=== PATIENT | male | born 1965 ===

== ENCOUNTER 2024-04-13 10:15 | Inpatient (IN) | payer OTHER ==
[~2024-04-13] VITALS: Ht 160 cm; Wt 80.3 kg
[2024-04-13] MEDS ORDERED: TAMS0.4C PO (13:11)
[2024-04-13] MEDS ORDERED: PEPCID40 MG PO (13:12)
[2024-04-13] MEDS ORDERED: HORIZANT300 MG PO (13:12)
[2024-04-13] MEDS ORDERED: PERCOCET 5-3251 EACH PO (13:13)
[2024-04-13 13:14] VITALS: BP 124/77
[2024-04-13 15:28] VITALS: BP 135/66
[2024-04-17] MEDS ORDERED: CEFTRIAXONE SODIUM 2,000 MG VIAL ONE (11:43)
[2024-04-17] MEDS ORDERED: METRONIDAZOLE/SODIUM CHLORIDE 500 MG/100 ML PIGGYBACK IV ONE (11:43)
[2024-04-17] MEDS ORDERED: POVIDONE-IODINE 118 ML BOTT TOP ONE (13:49)
[2024-04-17] MEDS ORDERED: DIBUCAINE 30 GM TUBE ONE (13:49)
[2024-04-17] MEDS ORDERED: HEMOSTATIC MATRIX 1 KIT KIT TOP ONE (13:49)
[2024-04-17] MEDS ORDERED: LIDOCAINE HCL 1%/EPINEPHRINE 20ML VIAL IJ ONE (13:50)
[2024-04-17] MEDS ORDERED: BUPIVACAINE HCL/Mpf 0.5% 10ML VIAL ONE (13:50)
[2024-04-17] MEDS ORDERED: DEXTROSE 50 % IN WATER 0.5 G/ML DISP.SYRIN IV PRN (15:15)
[2024-04-17] MEDS ORDERED: ONDANSETRON HCL 2 MG/ML VIAL IV PRN (15:15)
[2024-04-17] MEDS ORDERED: MORPHINE SULFATE 4 MG/ML CARTRIDGE IV PRN (15:15)
[2024-04-17] MEDS ORDERED: OxyCODONE HCL 5 MG TABLET (ROXICODONE) PO PRN (15:15)
[2024-04-17] MEDS ORDERED: RINGERS SOLUTION,LACTATED 1,000 ML IV SCH (15:15)
[2024-04-17] MEDS ORDERED: METRONIDAZOLE/SODIUM CHLORIDE 500 MG/100 ML PIGGYBACK IV SCH (17:00)
[2024-04-17] MEDS ORDERED: HYOSCYAMINE SULFATE 0.125 MG TAB.SUBL SL SCH (17:00)
[2024-04-17] MEDS ORDERED: GABAPENTIN 300 MG CAPSULE PO SCH (17:00)
[2024-04-17] MEDS ORDERED: CELECOXIB 200 MG CAPSULE PO SCH (17:00)
[2024-04-17] MEDS ORDERED: POLYETHYLENE GLYCOL 3350 17 GM BLIST.PACK PO SCH (17:00)
[2024-04-17] MEDS ORDERED: ACETAMINOPHEN 500 MG GEL..CAP PO SCH (20:00)
[2024-04-17 20:16] LABS: HEMATOCRIT 29.3 % (39.0-48.0); HEMOGLOBIN 9.8 g/dL (13-16.00); MEAN CELL VOLUME 92.1 fL (80.0-100.00); MEAN CORPUSCULAR HEMOGLOBIN 30.9 pg (27.00-32.0); MEAN CORPUSCULAR HGB CONC 33.6 g/dl (32.0-36.0); PLATELET COUNT 265 K/uL (150-450); RED BLOOD COUNT 3.18 M/uL (4.00-6.00); RED CELL DISTRIBUTION WIDTH 12.8 % (11.5-14.5)
[2024-04-17] MEDS ORDERED: CEFAZOLIN SODIUM 1,000 MG VIAL ONE (20:18)
[2024-04-17] MEDS ORDERED: FAMOTIDINE/PF 20 MG/2 ML VIAL ONE (20:19)
[2024-04-17 20:40] LABS: CALCIUM 8.2 mg/dL (8.5-10.1); CREATININE SERUM 0.89 mg/dL (0.70-1.30); GFR 87.19; MAGNESIUM 2.1 mg/dL (1.8-2.4); PHOSPHOROUS 3.5 mg/dL (2.5-4.9); POTASSIUM 3.41 mEq/L (3.5-5.1)
[2024-04-17] MEDS ORDERED: FAMOTIDINE/PF 20 MG/2 ML VIAL IV PUSH SCH (21:00)
[2024-04-17] MEDS ORDERED: CEFAZOLIN SODIUM 1,000 MG VIAL IV SCH (21:00)
[2024-04-17] MEDS ORDERED: ONDANSETRON HCL 2 MG/ML VIAL ONE (21:09)
[2024-04-17 22:25] VITALS: BP 135/66; O2SAT 100
[2024-04-18 00:58] VITALS: BP 110/65; O2SAT 99
[2024-04-18 06:48] LABS: HEMATOCRIT 25.1 % (39.0-48.0); MEAN CELL VOLUME 91.1 fL (80.0-100.00); MEAN CORPUSCULAR HGB CONC 34.8 g/dl (32.0-36.0); PLATELET COUNT 186 K/uL (150-450); RED BLOOD COUNT 2.76 M/uL (4.00-6.00); RED CELL DISTRIBUTION WIDTH 13.1 % (11.5-14.5)
[2024-04-18 06:56] LABS: ALBUMIN 2.8 gm/dL (3.4-5.0); CALCIUM 7.9 mg/dL (8.5-10.1); CREATININE SERUM 0.78 mg/dL (0.70-1.30); GFR 101.53; PHOSPHOROUS 3.5 mg/dL (2.5-4.9); POTASSIUM 4.18 mEq/L (3.5-5.1)
[2024-04-18 07:04] LABS: HEMOGLOBIN 8.8 g/dL (13-16.00); MEAN CORPUSCULAR HEMOGLOBIN 31.8 pg (27.00-32.0)
[2024-04-18 08:25] VITALS: BP 106/64; O2SAT 96
[2024-04-18] MEDS ORDERED: LACTULOSE 20 G/30 ML BLIST.PACK PO SCH (09:00)
[2024-04-18 16:59] VITALS: BP 95/59; O2SAT 95
[2024-04-18] MEDS ORDERED: ENOXAPARIN SODIUM 40 MG/0.4 ML SYRINGE SUBCUTANEO SCH (17:00)
[2024-04-19 01:19] VITALS: BP 110/63; O2SAT 98
[2024-04-19 08:00] VITALS: BP 118/69; O2SAT 96
[2024-04-19] MEDS ORDERED: ENOXAPARIN SODIUM 40 MG/0.4 ML SYRINGE SUBCUTANEO SCH (09:00)
[2024-04-19 15:33] VITALS: BP 105/60; O2SAT 98
[2024-04-20 01:10] VITALS: BP 106/67; O2SAT 93
[2024-04-20 08:00] VITALS: BP 135/62; O2SAT 99
== END 2024-04-20 14:28 | disposition home or self-care (01) | DRG 330 ==
LOC: O/R 04-17 09:00 → EDBD 04-17 10:15 → SURH 04-17 10:15 → SURG 04-17 19:48
PROVIDERS: ADMIT Colon & Rectal Surgery; ATTEND Colon & Rectal Surgery
PROC: 0DTP4ZZ Resection of Rectum, Percutaneous Endoscopic Approach (ICD-10-PCS; 2024-04-17)
PROC: 0DTQ4ZZ Resection of Anus, Percutaneous Endoscopic Approach (ICD-10-PCS; 2024-04-17)
PROC: 07BC4ZZ Excision of Pelvis Lymphatic, Percutaneous Endoscopic Approach (ICD-10-PCS; 2024-04-17)
PROC: 0D1E4Z4 Bypass Large Intestine to Cutaneous, Percutaneous Endoscopic Approach (ICD-10-PCS; 2024-04-17)
PROC: 0DTN4ZZ Resection of Sigmoid Colon, Percutaneous Endoscopic Approach (ICD-10-PCS; principal; 2024-04-17 15:15)
DX: C20 Malignant neoplasm of rectum (principal); K92.1 Melena; R59.0 Localized enlarged lymph nodes